=== PATIENT | female | born 1975 | race Two or more races ===

== ENCOUNTER 2018-09-06 02:45 | Inpatient (IN) | payer SELFPAY ==
[~2018-09-06] VITALS: Ht 175.3 cm; Wt 102.3 kg
[2018-09-06 03:22] LABS: Basophils # (auto) 0.1 uL; Basophils % (auto) 0.8 % (0.0-2.0); Eosinophils # (auto) 0.2 uL; Eosinophils % (auto) 1.9 % (0.0-7.0); Hematocrit 40.8 % (36.0-46.0); Hemoglobin 13.4 g/dL (12.2-16.2); Lymphocytes # (auto) 1.8 uL; Lymphocytes % (auto) 13.3 % (10.0-50.0); Mean Corpuscular Hgb Conc. 32.8 g/dL (32.0-36.0); Mean Corpuscular Volume 85.2 fL (80.0-100.0); Monocytes # (auto) 0.6 uL; Monocytes % (auto) 4.4 % (0.0-12.0); Neutrophils # (auto) 10.5 uL; Neutrophils % (auto) 79.6 % (37.0-80.0); Nucleated Red Blood Cells % 0.1 %; Platelet Count (auto) 278 10^3/uL (140-450); Red Blood Cells 4.79 10^6/uL (4.0-5.20); Red Cell Distribution Width 13.4 % (11.8-14.3); White Blood Cell 13.2 10^3/uL (4.4-10.8)
[2018-09-06 03:41] LABS: Albumin 3.5 g/dL (3.4-5.0); BUN/Creatinine Ratio 16.5; Calcium 9.3 mg/dL (8.5-10.1); Potassium 3.9 mmol/L (3.5-5.1)
[2018-09-06 03:44] LABS: Bilirubin, Total 0.3 mg/dL (0.2-1.0); Total Protein 7.3 g/dL (6.4-8.2)
[2018-09-06 04:13] LABS: Urine Bacteria FEW /hpf (None Seen); Urine Blood TRACE /uL (Negative); Urine Mucus FEW (None Seen); Urine WBC 1 /hpf (0 - 5)
[2018-09-06] MEDS ORDERED: SODIUM CHLORIDE 0.9% 500 ML IVB ONE (06:34)
[2018-09-06] MEDS ORDERED: ONDANSETRON HCL 4 MG/2 ML VIAL IV ONE (06:45)
[2018-09-06] MEDS ORDERED: MORPHINE SULFATE 4 MG/ML SYR/VIAL IV ONE (06:45)
[2018-09-06] MEDS ORDERED: KETOROLAC TROMETH 30 MG/ML 1ML VIAL IV ONE (08:30)
[2018-09-06] MEDS ORDERED: LORazepam 0.5 MG TAB PO PRN (08:45)
[2018-09-06] MEDS ORDERED: ACETAMINOPHEN 500 MG TAB PO PRN (08:45)
[2018-09-06 09:09] LABS: Amylase 45 U/L (25-115); Lipase 168 U/L (73-393)
[2018-09-06] MEDS: cefTRIAXone 1GM/50ML D5W 50 ML IV SCH (09:21)
[2018-09-06] MEDS: SODIUM CHLORIDE 0.9% 1,000 ML IV SCH ×2 (09:21→11:37)
[2018-09-06] MEDS ORDERED: FAMOTIDINE 20 MG TAB PO SCH (10:00)
[2018-09-06] MEDS ORDERED: MORPHINE SULF INJ 2 MG/ML SYRINGE 1ML IV PRN (11:00)
[2018-09-06 13:00] VITALS: BP 148/91
[2018-09-06] MEDS: PROMETHAZINE HCL 25 MG/ML 1ML IV PRN ×2 (14:16→22:31)
[2018-09-06] MEDS: KETOROLAC TROMETH 30 MG/ML 1ML VIAL IV PRN ×2 (14:16→22:28)
[2018-09-06] MEDS ORDERED: HYDR-3546 PO (15:01)
[2018-09-06 17:00] VITALS: BP 144/69
[2018-09-06] MEDS: traMADol HCL 50 MG TAB PO PRN (18:33)
[2018-09-06 22:00] VITALS: BP 153/87
[2018-09-06] MEDS: PANTOPRAZOLE 40 MG TAB PO SCH (22:27)
[2018-09-07 04:23] VITALS: BP 119/76
[2018-09-07] MEDS: SODIUM CHLORIDE 0.9% 1,000 ML IV SCH ×2 (06:17→14:42)
[2018-09-07] MEDS: PROMETHAZINE HCL 25 MG/ML 1ML IV PRN ×3 (07:06→21:46)
[2018-09-07] MEDS: KETOROLAC TROMETH 30 MG/ML 1ML VIAL IV PRN ×3 (07:06→21:37)
--- NOTE | 2018-09-07 07:45 | NUR ---
Opening Shift Note Assumed care of patient, patient comfortably resting in bed, awake and alert and on room air. No S/S of distress/SOB or pain. Bed at lowest position and call light within reach. Instructed on POC and to call for assist PRN, will continue to monitor for changes Q1hr and PRN.
[2018-09-07 08:00] VITALS: BP 127/77
[2018-09-07 08:22] LABS: Basophils # (auto) 0.1 uL; Basophils % (auto) 0.6 % (0.0-2.0); Eosinophils # (auto) 0.1 uL; Eosinophils % (auto) 0.6 % (0.0-7.0); Hemoglobin 12.7 g/dL (12.2-16.2); Lymphocytes # (auto) 1.3 uL; Mean Corpuscular Hemoglobin 28.6 pg (28.0-32.0); Mean Corpuscular Hgb Conc. 33.3 g/dL (32.0-36.0); Mean Corpuscular Volume 85.8 fL (80.0-100.0); Monocytes # (auto) 0.7 uL; Monocytes % (auto) 6.5 % (0.0-12.0); Neutrophils # (auto) 8.9 uL; Neutrophils % (auto) 80.3 % (37.0-80.0); Platelet Count (auto) 243 10^3/uL (140-450); Red Blood Cells 4.43 10^6/uL (4.0-5.20); Red Cell Distribution Width 13.4 % (11.8-14.3); White Blood Cell 11.1 10^3/uL (4.4-10.8)
[2018-09-07 08:40] VITALS: BP 127/77
[2018-09-07] MEDS: cefTRIAXone 1GM/50ML D5W 50 ML IV SCH (10:02)
[2018-09-07] MEDS: PANTOPRAZOLE 40 MG TAB PO SCH ×2 (10:03→21:37)
[2018-09-07 11:21] VITALS: BP 120/74
--- NOTE | 2018-09-07 13:10 | NUR ---
Patient educated on orders to strain urine. Patient verbalized understanding. IN[employer]CTOR [employer]FF[employer]AF[employer] aware.
[2018-09-07 16:11] VITALS: BP 119/67
[2018-09-07] MEDS ORDERED: TAMSULOSIN HYDROCHLORIDE 0.4 MG CAP PO SCH (18:00)
--- NOTE | 2018-09-07 20:30 | NUR ---
STOOL SAMPLE COLLECTED
--- NOTE | 2018-09-07 20:44 | NUR ---
OPENING SHIFT NOTE ASSUMED CARE OF PATIENT FROM DAY SHIFT [facility]. PATIENT IS A/O X4 WITH EVEN AND UNLABORED RESPIRATIONS. PATIENT STATES PELVIC PAIN 5/10. BED IN LOWEST POSITION, LOCKED, AND CALL LIGHT IS IN REACH. PATIENT INSTRUCTED ON POC AND TO CALL FOR ASSIST PRN. WILL CONTINUE TO MONITOR.
[2018-09-07] MEDS: traMADol HCL 50 MG TAB PO PRN (21:29)
[2018-09-07 22:00] VITALS: BP 135/79
[2018-09-08] MEDS: SODIUM CHLORIDE 0.9% 1,000 ML IV SCH ×2 (02:00→08:36)
[2018-09-08 04:59] VITALS: BP 116/72
[2018-09-08] MEDS: KETOROLAC TROMETH 30 MG/ML 1ML VIAL IV PRN (06:47)
[2018-09-08 07:13] VITALS: BP 126/76
[2018-09-08 07:20] LABS: Basophils # (auto) 0 uL; Basophils % (auto) 0.5 % (0.0-2.0); Eosinophils # (auto) 0.2 uL; Eosinophils % (auto) 1.9 % (0.0-7.0); Hematocrit 35.9 % (36.0-46.0); Hemoglobin 12.2 g/dL (12.2-16.2); Lymphocytes # (auto) 1.9 uL; Lymphocytes % (auto) 21.1 % (10.0-50.0); Mean Corpuscular Hemoglobin 28.9 pg (28.0-32.0); Mean Corpuscular Hgb Conc. 33.8 g/dL (32.0-36.0); Mean Corpuscular Volume 85.5 fL (80.0-100.0); Monocytes # (auto) 0.7 uL; Monocytes % (auto) 7.7 % (0.0-12.0); Neutrophils # (auto) 6.1 uL; Neutrophils % (auto) 68.8 % (37.0-80.0); Platelet Count (auto) 226 10^3/uL (140-450); Red Cell Distribution Width 13.1 % (11.8-14.3); White Blood Cell 8.9 10^3/uL (4.4-10.8)
[2018-09-08 07:41] LABS: Calcium 8.4 mg/dL (8.5-10.1); Potassium 3.8 mmol/L (3.5-5.1)
[2018-09-08 07:46] LABS: Albumin 2.9 g/dL (3.4-5.0); Bilirubin, Total 0.3 mg/dL (0.2-1.0); Total Protein 6.2 g/dL (6.4-8.2)
[2018-09-08 08:00] VITALS: BP 116/72
[2018-09-08] MEDS: PANTOPRAZOLE 40 MG TAB PO SCH (08:34)
[2018-09-08] MEDS: cefTRIAXone 1GM/50ML D5W 50 ML IV SCH (08:35)
[2018-09-08 11:15] VITALS: BP 126/78
[2018-09-08 12:22] VITALS: BP 116/72
--- NOTE | 2018-09-08 12:59 | NUR ---
Second page for for Dr. Sales regarding patients diet, per Dr. Doyle. Addendum: 09/08/18 at 1351 by Nubia Heredia RN * disregard note. Wrong patient .
--- NOTE | 2018-09-08 13:51 | NUR ---
Discharge instructions given as ordered. Encourage to follow up with PMD as instructed. All questions and concerns addressed. Patient verbalized understanding. IV removed with catheter intact, pressure dressing applied. Patient taken to vehicle via wheelchair with all personal belongings, accompanied by staff and family member. No distress noted at time of departure.
== END 2018-09-08 13:50 | disposition home or self-care (01) | DRG 690 ==
LOC: ER 02:50 → WEST WING 08:46
PROVIDERS: ADMIT Internal Medicine; ATTEND Internal Medicine
DX: N39.0 Urinary tract infection, site not specified (principal); N20.0 Calculus of kidney; N83.201 Unspecified ovarian cyst, right side; E66.9 Obesity, unspecified; Z68.33 Body mass index [BMI] 33.0-33.9, adult; D25.9 Leiomyoma of uterus, unspecified; K76.0 Fatty (change of) liver, not elsewhere classified; Z82.49 Family history of ischemic heart disease and other diseases of the circulatory system; Z83.3 Family history of diabetes mellitus; Z87.442 Personal history of urinary calculi; Z90.710 Acquired absence of both cervix and uterus; Z82.61 Family history of arthritis
CPT/HCPCS: 36415; 74176; 76775; 76856; 80053; 81001; 81025; 82150; 82270; 83690; 85025; 87086; G0378; J0696; J1885; J2405